=== PATIENT | male | born 2000 | race Caucasian/White ===

== ENCOUNTER 2019-01-22 18:16 | Inpatient (IN) | payer MEDICAID, OTHER ==
[2019-01-22 18:16] VITALS: BMI 21.2
--- NOTE | 2019-01-22 18:47 | ED PDOC ---
HPI: Psych/Substance Abuse Time Seen by Provider: 01/22/19 18:37 Chief Complaint (Nursing): Psychiatric Evaluation Chief Complaint (Provider): psych eval History Per: Patient (18 y/o male here for evaluation of overdose and SI. Patient took unknown amount of mother's medication today. Patient states he "doesn't want to be here." Denies any prior suicidal attempts. Denies any current alcohol but states he has occasional smoked thc in past. ) Past Medical History Reviewed: Historical Data, Nursing Documentation, Vital Signs Vital Signs: Last Vital Signs Temp 97.9 F 01/22/19 18:18 Pulse 77 01/22/19 18:18 Resp 18 01/22/19 18:18 BP 146/106 H 01/22/19 18:18 Pulse Ox 99 01/22/19 18:18 - Surgical History Surgical History: Tonsillectomy - Family History Family History: States: Unknown Family Hx - Immunization History Hx Tetanus Toxoid Vaccination: Yes Hx Influenza Vaccination: No Hx Pneumococcal Vaccination: No - Home Medications Home Medications: Ambulatory Orders Medication Instructions Recorded Clobetasol 0.05% [Temovate 0.05% 1 applic EXT BID #30 g 07/08/18 OINTMENT] - Allergies Allergies/Adverse Reactions: Allergies Allergy/AdvReac Type Severity Reaction Status Date / Time No Known Allergies Allergy Verified 01/22/19 18:17 Review of Systems ROS Statement: Except As Marked, All Systems Reviewed And Found Negative Physical Exam - Reviewed Nursing Documentation Reviewed: Yes Vital Signs Reviewed: Yes - Physical Exam Appears: Positive for: Well, Non-toxic, No Acute Distress Head Exam: Positive for: ATRAUMATIC, NORMAL INSPECTION, NORMOCEPHALIC Skin: Positive for: Normal Color, Warm, DRY Eye Exam: Positive for: EOMI, Normal appearance, PERRL ENT: Positive for: Normal ENT Inspection Neck: Positive for: Normal, Painless ROM Cardiovascular/Chest: Positive for: Regular Rate, Rhythm Respiratory: Positive for: CNT, Normal Breath Sounds Gastrointestinal/Abdominal: Positive for: Normal Exam, Soft Back: Positive for: Normal Inspection Extremity: Positive for: Normal ROM Neurological/Psych: Positive for: Awake, Alert, Normal Tone - ECG ECG Rhythm: Positive for: Sinus Rhythm (nsr 67 bpm; no ectopy no acute changes QT/QTc 364/384) O2 Sat by Pulse Oximetry: 99 - Progress ED Course And Treament: d/w poison control 19:05pm. Recommends NS fluid hydration and observation of BP. Recommends 6 hour observation CALLED TO BEDSIDE PATIENT BECAME AGITATED 19:20 PATIENT PLACED IN RESTRAINTS. ATIVAN 2 MG IM X 1 DOSE. PATIENT PERSISTENTLY AGITATED. HALDOL 5MG IM X 1 DOSE Disposition - Clinical Impression Clinical Impression: Overdose - Patient ED Disposition Is Patient to be Admitted: Transfer of Care - Disposition Disposition: Transfer of Care Disposition Time: 20:00 Condition: FAIR Patient Signed Over To: Abbe Cisneros Handoff Comments: PENDING RE-EVALUATION IN 6 HOURS. REVIEW OF LABWORK/CRISIS EVAL WHEN MEDICALLY CLEARED.
[2019-01-22] MEDS ORDERED: Sodium Chloride 0.9% 1,000 ML IV STA (18:49)
--- NOTE | 2019-01-22 20:00 | ED PDOC ---
- Laboratory Results Result Diagrams: 01/22/19 20:20 01/22/19 20:20 - ECG O2 Sat by Pulse Oximetry: 99 <Abbe Cisneros - Last Filed: 01/23/19 05:33> - Laboratory Results Result Diagrams: 01/22/19 20:20 01/22/19 20:20 Lab Results: PT 12.1 Seconds (9.8-13.1) 01/22/19 20:20 INR 1.1 01/22/19 20:20 APTT 31.3 Seconds (25.6-37.1) 01/22/19 20:20 Total Bilirubin 1.0 mg/dl (0.2-1.3) 01/22/19 20:20 AST 31 U/L (17-59) 01/22/19 20:20 ALT 15 U/L (21-72) L 01/22/19 20:20 Alkaline Phosphatase 57 U/L (38-126) 01/22/19 20:20 Total Protein 7.9 G/DL (6.3-8.2) 01/22/19 20:20 Albumin 4.9 g/dL (3.5-5.0) 01/22/19 20:20 Globulin 3.0 gm/dL (2.2-3.9) 01/22/19 20:20 Albumin/Globulin Ratio 1.7 (1.0-2.1) 01/22/19 20:20 <Jeison Reed - Last Filed: 01/23/19 11:47> Medical Decision Making Medical Decision Makin - Care for this patient assumed from Amee Pablo [facility]; the patient is medically stable, in physical restraints and still showing signs of aggitation and aggresion toward staff making it an unsafe environment. The patient has been placed on a monitor to observe rythmn, O2 and BP remotely. The plan for this patient continues to be * Assess/adjust medications daily and/or as needed * Discuss risks, benefits , side effects and alternatives of medication * See patient on an individual basis 7x/week to assess level of aggressive/threatening behaviors * * Crisis Intervention when appropriate 2039 - The patient's aggitation and aggression has subsided with medical assistance and he no longer poses a threat to his or to the staff's saftey. He is resting comfortably and physical retraints have been removed. The patient remains on 1:1 observation and family is in the room with him. * 2230 - on re-evaluation, the patient remains medically stable 0020 - on re-evaluation, the patient remains medically stable 0251 - on re-evaluation, the patient remains medically stable 0500 - on re-evaluation, the patient remains medically stable 0555 - The patient remains stable; care for this patient will be maintained by Dr Eber Reed <Abbe Cisneros - Last Filed: 01/23/19 05:33> Medical Decision Makin:00 Evaluated patient at bedside. Patient has stable vitals and is comfortably sleeping in his bed. Awaiting crisis evaluation. 07:00 Patient signed out to Dr. Grimes. Pending crisis evaluation. Scribe Attestation: Documented by Eric Diaz acting as a scribe for Jeison Reed MD. Provider Scribe Attestation: All medical record entries made by the Scribe were at my direction and personally dictated by me. I have reviewed the chart and agree that the record accurately reflects my personal performance of the history, physical exam, medical decision making, and the department course for this patient. I have also personally directed, reviewed, and agree with the discharge instructions and disposition. <Jeison Reed - Last Filed: 01/23/19 11:47> Disposition <Abbe Cisneros - Last Filed: 01/23/19 05:33> - POA Present On Arrival: None - Disposition Disposition: Transfer of Care Disposition Time: 07:00 Patient Signed Over To: Yo Grimes <Jeison Reed - Last Filed: 01/23/19 11:47> - Clinical Impression Clinical Impression: Overdose, Suicidal ideations - Disposition Condition: STABLE
[2019-01-22 20:40] LABS: BASO % 0.2 % (0.0-2.0); EOS # 0.1 K/uL (0.0-0.7); EOS % 0.7 % (0.0-4.0); HEMOGLOBIN 16.3 g/dL (12.0-18.0); LYMPH # 2.1 K/uL (1.0-4.3); LYMPH % 21.2 % (20.0-40.0); MEAN CELL VOLUME 90.7 fl (80.0-94.0); MEAN CORPUSCULAR HEMOGLOBIN 31.6 pg (27.0-31.0); MEAN CORPUSCULAR HGB CONC 34.9 g/dL (33.0-37.0); MEAN PLATELET VOLUME 9.9 fl (7.2-11.7); MONO # 0.6 K/uL (0.0-0.8); MONO % 6.4 % (0.0-10.0); NEUT # 7.1 K/uL (1.8-7.0); NEUT % 71.5 % (50.0-75.0); NRBC % 0.2 % (0.0-0.0); RBC 5.15 Mil/uL (4.40-5.90); RED CELL DISTRIBUTION WIDTH 12.9 % (11.5-14.5); WHITE BLOOD COUNT 9.9 K/uL (4.8-10.8)
[2019-01-22 20:44] LABS: INR 1.1; PROTHROMBIN TIME 12.1 Seconds (9.8-13.1)
[2019-01-22 20:46] LABS: PARTIAL THROMBOPLASTIN TIME 31.3 Seconds (25.6-37.1)
[2019-01-22 20:47] LABS: ALB/GLOB RATIO 1.7 (1.0-2.1); ALBUMIN 4.9 g/dL (3.5-5.0); ALT/SGPT 15 U/L (21-72); AST/SGOT 31 U/L (17-59); BLOOD UREA NITROGEN 14 mg/dl (9-20); CALCIUM 10.1 mg/dL (8.4-10.2); GFR NON-AFRICAN AMERICAN > 60
[2019-01-22 20:50] LABS: ACETAMINOPHEN < 10.0 ug/ml (10.0-30.0); SALICYLATE < 1.0 mg/dl
--- NOTE | 2019-01-23 07:15 | ED PDOC ---
- Laboratory Results Result Diagrams: 01/22/19 20:20 01/22/19 20:20 Lab Results: PT 12.1 Seconds (9.8-13.1) 01/22/19 20:20 INR 1.1 01/22/19 20:20 APTT 31.3 Seconds (25.6-37.1) 01/22/19 20:20 Total Bilirubin 1.0 mg/dl (0.2-1.3) 01/22/19 20:20 AST 31 U/L (17-59) 01/22/19 20:20 ALT 15 U/L (21-72) L 01/22/19 20:20 Alkaline Phosphatase 57 U/L (38-126) 01/22/19 20:20 Total Protein 7.9 G/DL (6.3-8.2) 01/22/19 20:20 Albumin 4.9 g/dL (3.5-5.0) 01/22/19 20:20 Globulin 3.0 gm/dL (2.2-3.9) 01/22/19 20:20 Albumin/Globulin Ratio 1.7 (1.0-2.1) 01/22/19 20:20 - ECG O2 Sat by Pulse Oximetry: 97 (RA) Pulse Ox Interpretation: Normal - Progress ED Course And Treament: 851: Crisis accepted and will admit. Stable. AAOx3. Medical Decision Making Medical Decision Making: Time: 0700 -- Patient endorsed to me by Dr. Reed, pending crisis evaluation. Patient medically cleared for crisis evaluation by Dr. Reed on previous shift. Scribe Attestation: Documented by Carrington Quan, acting as a scribe Cassie Grimes MD. Provider Scribe Attestation: All medical record entries made by the Scribe were at my direction and personally dictated by me. I have reviewed the chart and agree that the record accurately reflects my personal performance of the history, physical exam, medical decision making, and the department course for this patient. I have also personally directed, reviewed, and agree with the discharge instructions and disposition. Disposition - Clinical Impression Clinical Impression: Overdose - POA Present On Arrival: None - Disposition Disposition: Admitted as In-Patient Disposition Time: 08:00 Condition: FAIR
[2019-01-23 08:52] VITALS: O2SAT 97
[2019-01-23 09:10] LABS: BARBITURATES, UR NEGATIVE (NEGATIVE); BENZODIAZEPINES, UR NEGATIVE (NEGATIVE); OPIATES, UR NEGATIVE (NEGATIVE); PHENCYCLIDINE, UR NEGATIVE (NEGATIVE)
[2019-01-23 09:11] LABS: URINE BILIRUBIN NEGATIVE (NEGATIVE); URINE BLOOD NEGATIVE (NEGATIVE); URINE CLARITY SLIGHTY-CLOUDY (Clear); URINE COLOR YELLOW (YELLOW); URINE GLUCOSE (UA) NEG (NEGATIVE); URINE HYALINE CAST 0-2 /hpf (0-2); URINE LEUKOCYTE ESTERASE NEG Leu/uL (Negative); URINE PROTEIN 30 mg/dL (NEGATIVE); URINE UROBILINOGEN 0.2-1.0 mg/dL (0.2-1.0)
--- NOTE | 2019-01-23 09:18 | RAD ---
Date of service: 01/22/2019 HISTORY: routine COMPARISON: No prior. FINDINGS: LUNGS: No active pulmonary disease. PLEURA: No significant pleural effusion identified, no pneumothorax apparent. CARDIOVASCULAR: No aortic atherosclerotic calcification present. Normal cardiac size. No pulmonary vascular congestion. OSSEOUS STRUCTURES: No significant abnormalities. VISUALIZED UPPER ABDOMEN: Normal. OTHER FINDINGS: None. IMPRESSION: No active disease.
[2019-01-23] MEDS ORDERED: Alum-Mag Hydrox-Simethicone Susp (30 mL) PO PRN (13:05)
[2019-01-23] MEDS ORDERED: DiphenhydrAMINE 50 mg/ml Inj IM PRN (13:05)
[2019-01-23] MEDS ORDERED: Magnesium Hydroxide Susp 30 ml UD PO PRN (13:05)
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
--- NOTE | 2019-01-23 19:56 | PCM.BM ---
<ChetanJuliannaMarita Irving Nadira - Last Filed: 01/23/19 19:56> Treatment assets and liabiliti Patient Assests: self-reliant, ADL independent, physically healthy, negotiates basic needs, cognitively intact Patient Liabilities: relationship conflicts, substance abuse - Milieu Protocol Maintain good personal hygiene: daily Encourage regular showers, daily Remind patient to perform daily oral care, daily Assist patient to perform ADL's Conduct patient checks and document Observation sheet: Q15 minutes Maintain personal safety: every shift Educate patient to report safety concerns to staff, every shift Monitor environment for contraband/sharps Medication safety: Monitor for expected outcome, potential side effects: every shift, Assess barriers to learning: every shift, Assess readiness for medication education: every shift Milieu Narrative: start lexapro 10 mg qhs motivational group and supportive therapy internal medicine consult Discharge/Continuing Care - Treatment Team Participation Patient/Family/SO Statement: start lexapro 10 mg qhs motivational group and supportive therapy internal medicine consult <Monica Blanco - Last Filed: 01/25/19 13:52> Treatment Plan Problems - Problems identified on initial assessmt Hopelessness/Helplessness Date Initiated: 01/25/19 Time Initiated: 13:40 Assessment reference: NA Status: Active Ineffective coping Date Initiated: 01/25/19 Time Initiated: 13:41 Assessment reference: NA Status: Active - Milieu Protocol Maintain good personal hygiene: daily Encourage regular showers, daily Remind patient to perform daily oral care, other Assist patient to perform ADL's (prn) Conduct patient checks and document Observation sheet: Q15 minutes Maintain personal safety: every shift Educate patient to report safety concerns to staff, every shift Monitor environment for contraband/sharps Medication safety: Monitor for expected outcome, potential side effects: every shift, Assess barriers to learning: every shift, Assess readiness for medication education: every shift <Lilian Cortez - Last Filed: 01/26/19 15:30> - Diagnosis (1) Depression Status: Acute Interventions: psychotherapy, pharmacotherapy 01/26/19 15:30 <Yojana William - Last Filed: 01/26/19 15:44> Treatment assets and liabiliti Patient Assests: adapts well, cooperative, educated ( Pt. reports plan to attend college and is currently in the process of enrolling.), motivated, self-reliant, ADL independent, physically healthy, good support system (Pt. identifies mother as primary support, stating that they are very close. Pt. reports having a loving and supportive relationship with aunts, cousins, and girlfriend.), negotiates basic needs, cognitively intact Patient Liabilities: relationship conflicts (Pt. reports distant relationship with older brother. Pt. reports discord with father secondary to fathers absence. ), substance abuse (Pt. reports occasional marijuana use but denies ETOH/other illicit substance abuse. Toxicology positive for cannabis. ), legal issue (Pt. reports recently having license suspended due to unpaid parking tickets (paying fees).) Family Contact Family involvement: Family/SO is involved Family contact: Patient agrees to contact, Family has been contacted by patient, Telephone contact initiated by staff Family contact comment: Finance Effectiveness Manager met with pt. to discuss precursors to hospitalization, collect further collateral/necessary consents, and complete initial assessment. Pt. AOX4 with brighter affect than upon admission. Pt. reports improvement in sxs of depression since admission. Pt. reported improvement in sleep disturbances after med increase on 01/24. Pt. expressing remorse towards suicide attempt leading to admission. Pt. expressed motivation for tx upon discharge. Pt. visible on 3NP and observed socializing appropriately with peers. Pt. denies SI/HI and is able to contract for safety on 3NP. Assessment completed and will be submitted on 01/25. . Finance Effectiveness Manager placed call to pts cousin (Jacqui [phone]) to discuss pts progress on 3NP and aftercare. Finance Effectiveness Manager left brief message with call back number on unidentified voicemail. Finance Effectiveness Manager awaiting response. - Goals for Treatment Patient goals for treatment: Patient to continue stabilization on 3NP through medication management and group/supportive therapy to address sxs of depression (energy, motivation, sleep) and eliminate SI. Patient to be encouraged to attend groups regularly to promote self-awareness, sobriety, and improve insight, compliance, coping skills and self-esteem. Patient to be provided with referral for appropriate level of aftercare to reduce risk of future hospitalizations and ensure safety in the community. Pt. identified improvement in sleep and wanting to be connected to outpatient mental health services to "finally get help" as primary tx goal. Discharge/Continuing Care - Education Needs Education Needs: Family Medication, Family Diagnosis/Disease Process, Family Community resources, Family Aftercare Safety Plan, Patient Medication, Patient Diagnosis/Disease Process, Patient Coping Skills, Patient Community resources, Patient Aftercare Safety Plan - Discharge Discharge Criteria: Tolerates medication w/o severe side effects, Free of Suicidal thoughts, Normal sleep pattern, Ability to care for self, Reduction of target symptoms Discharge to:: Home, With Family - Treatment Team Participation Patient/Family/SO Statement: 01/26/19 15:40 Patient attended tx team this morning to discuss improvement since admission and tx goals. Affect brighter than admission. Pt. reported improvement in sxs of depression since admission as exhibited by improvement in mood, energy, motivation, and sleep. Pt. goal-oriented and discharge focused, reporting plans to return to work and enroll in college courses. Importance of adherence with aftercare emphasized. Pt. expressed motivation for tx.. Pt. requested p sychoeducation regarding medication management. Information provided. 01/26/19 15:44 Discussed with Family/SO: Yes Was Patient/Family/SO present at Treatment Team Meeting: Yes
--- NOTE | 2019-01-23 22:32 | CARD ---
APPROVED REPORT Date of service: 01/22/2019 EKG Measurement Heart [id number] <Conclusion> Normal sinus rhythm Minimal voltage criteria for LVH, may be normal variant Borderline ECG
--- NOTE | 2019-01-24 17:38 | PCM.PYCHPN ---
Psychiatric Progress Note - Psychiatric Progress Note Patient seen today, length of contact: chart review case discussed with team Patient Chief Complaint: was feeling overwhelmed took unknown number of advil in an impulse, became nervous made self throw up, reports new job, has girlfriend. wanting to attend college missed enrollment date, admits remorse, realized that mother and brother were affected as ell as was girlfriend. expresses thoughts related to be a "proscraternator", grades in high school"b's and c's" would procrastinate" did not attend smaller classes denies having been told might be adhd add". reports only saw counselor in last year of high school when parents . does express willingness to continue treatment upon admission including psychotherapy Problems Identified/Issues Discussed: alteration in mood alteration in coping Medical Problems: per chart elevated glucose upon admission ?fasting Diagnostic Results: per psychiatry per medicine per nursing per social work per recreational therapy per s DSM 5 Symptoms Update: alteration in mood alteration in sleep reports decreased sleep last night Medication Change: Yes (trazodone 50mg po hs prn insomina) Medical Record Reviewed: Yes (repeat cmp elevated glucose ?fasting) Consults ordered or reviewed: pt seen by hospitalist Mental Status Examination - Cognitive Function Orientation: Person, Place, Situation, Time Attention: WNL Concentration: WNL Association: WNL Fund of Knowledge: WN Decription of patient's judgement and insights: impaired - Mood Mood: Depressed - Affect Affect: Constricted, Depressed - Formal Thought Process Formal Thought Process: No Impairment - Homicidal Ideation Homicidal Ideation: No Goal/Treatment Plan - Goal/Treatment Plan Progress Toward Problem(s) and Goals/Treatment Plan: inpt milieu trazodone 50mg po hs prn insomnia review possible constipation, priaprism, possible s/s serotonin syndrome-b/p hr 1/2 hour after trazodone discharge planning in progress-pt requests to follow up in [place] upon discharge Estimated Date of D/C: 01/28/19 - Smoking Cessation Smoking Cessation Initiated: No Reason for not providing: defers
--- NOTE | 2019-01-25 12:51 | PCM.PYCHPN ---
Psychiatric Progress Note - Psychiatric Progress Note Patient seen today, length of contact: chart review case discussed with team Patient Chief Complaint: reports feeling calmer slept better denies desire to harm self staff report pt rx adherent seen about unit/milieu. reports remorse for attempt at taking advil. verbalizes desire to follow up with opd treatment/counseling. denies side effects with medications. staff report vital signs with in normal limits. Problems Identified/Issues Discussed: alteration in mood alteration in coping Medical Problems: per chart elevated glucose upon admission ?fasting Diagnostic Results: per psychiatry per medicine per nursing per social work per recreational therapy DSM 5 Symptoms Update: some improvement mood sleep Medication Change: No Medical Record Reviewed: No Consults ordered or reviewed: pt seen by hospitalist Mental Status Examination - Cognitive Function Orientation: Person, Place, Situation, Time Attention: WNL Concentration: WNL Association: WNL Fund of Knowledge: WNL Decription of patient's judgement and insights: impaired - Mood Mood: Depressed Additional comments: somewhat less - Affect Affect: Constricted, Depressed - Formal Thought Process Formal Thought Process: No Impairment - Homicidal Ideation Homicidal Ideation: No Goal/Treatment Plan - Goal/Treatment Plan Progress Toward Problem(s) and Goals/Treatment Plan: inpt milieu trazodone 50mg po hs prn insomnia adjust other medications per clinical status review possible constipation, priaprism, possible s/s serotonin syndrome-b/p hr 1/2 hour after trazodone discharge planning in progress-pt requests to follow up in [place] upon disc harge Estimated Date of D/C: 01/28/19 - Smoking Cessation Smoking Cessation Initiated: No Reason for not providing: pt defers
[2019-01-26 08:42] LABS: ALB/GLOB RATIO 1.5 (1.0-2.1); ALBUMIN 4.8 g/dL (3.5-5.0); ALT/SGPT 24 U/L (21-72); AST/SGOT 47 U/L (17-59); BLOOD UREA NITROGEN 12 mg/dl (9-20); CALCIUM 10.2 mg/dL (8.4-10.2); GFR NON-AFRICAN AMERICAN > 60
--- NOTE | 2019-01-26 15:31 | PCM.PYCHPN ---
Psychiatric Progress Note - Psychiatric Progress Note Patient seen today, length of contact: chart review case discussed with team Patient Chief Complaint: I feel less depressed and more hopeful about the future Medical Problems: no hx of previous psychiatric treatment Medication Change: Yes Medical Record Reviewed: Yes Mental Status Examination - Cognitive Function Orientation: Person, Place, Situation, Time Attention: WNL Concentration: WNL Association: WNL Fund of Knowledge: WNL - Mood Mood: Depressed - Affect Affect: Constricted, Depressed - Formal Thought Process Formal Thought Process: No Impairment - Homicidal Ideation Homicidal Ideation: No Goal/Treatment Plan - Goal/Treatment Plan Progress Toward Problem(s) and Goals/Treatment Plan: start lexapro 10 mg qhs motivational group and supportive therapy internal medicine consult Estimated Date of D/C: 01/28/19
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
--- NOTE | 2019-01-26 16:57 | CP.PCM.CON ---
History of Present Illness - History of Present Illness History of Present Illness: HPI: 18 y/o man w/ no pmh is admitted to psychiatry for major depression. Patient also reports marijuana use. Patient denies headaches, chest pain, abdominal pain, nausea, vomiting, diarrhea, dysuria, or fever. Review of Systems - Review of Systems All systems: reviewed and no additional remarkable complaints except - Constitutional Constitutional: absent: Fever, Headache - EENT Eyes: absent: Change in Vision - Cardiovascular Cardiovascular: absent: Chest Pain - Respiratory Respiratory: absent: Dyspnea - Gastrointestinal Gastrointestinal: absent: Abdominal Pain, Diarrhea, Nausea, Vomiting - Genitourinary Genitourinary: absent: Dysuria - Integumentary Integumentary: absent: Rash - Psychiatric Psychiatric: As Per HPI Past Patient History - Past Social History Smoking Status: Never Smoked - CARDIAC Hx Cardiac Disorders: No Hx Hypertension: No - PULMONARY Hx Tuberculosis: No Other/Comment: tonsils - NEUROLOGICAL HX Cerebrovascular Accident: No Hx Seizures: No - HEMATOLOGICAL/ONCOLOGICAL Hx Cancer: No Hx Human Immunodeficiency Virus (HIV): No - GENITOURINARY/GYNECOLOGICAL Hx Sexually Transmitted Disorders: No - PSYCHIATRIC Hx Substance Use: Yes (mj) - SURGICAL HISTORY Hx Tonsillectomy: Yes - ANESTHESIA Hx Anesthesia: Yes Hx Anesthesia Reactions: No Meds Home Medications: Home Medication List Medication Instructions Recorded Confirmed Type Escitalopram [Lexapro] 10 mg PO HS 30 Days #30 tab 01/26/19 Rx Gabapentin [Neurontin] 100 mg PO TID 30 Days #90 cap 01/26/19 Rx traZODone [Desyrel] 100 mg PO HS 30 Days #30 tab 01/26/19 Rx Allergies/Adverse Reactions: Allergies Allergy/AdvReac Type Severity Reaction Status Date / Time No Known Allergies Allergy Verified 01/22/19 18:17 - Medications Medications: Current Medications Acetaminophen (Tylenol 325mg Tab) 650 mg PO Q4 PRN PRN Reason: Pain, moderate (4-7) Al Hydrox/Mg Hydrox/Simethicone (Maalox Plus 30 Ml) 30 ml PO Q4 PRN PRN Reason: Dyspepsia Diphenhydramine HCl (Benadryl) 50 mg IM Q6 PRN PRN Reason: Extrapyramidal S/S Unable PO Diphenhydramine HCl (Benadryl) 50 mg PO Q6 PRN PRN Reason: Extrapyramidal Symptoms Diphenhydramine HCl (Benadryl) 50 mg PO HS PRN PRN Reason: Sleep Last Admin: 01/23/19 21:16 Dose: 50 mg Escitalopram Oxalate (Lexapro) 10 mg PO HS [facility] Last Admin: 01/25/19 21:03 Dose: 10 mg Gabapentin (Neurontin) 100 mg PO TID [facility] Last Admin: 01/26/19 12:56 Dose: 100 mg Haloperidol (Haldol) 5 mg PO Q4 PRN PRN Reason: Agitation Haloperidol Lactate (Haldol) 5 mg IM Q4 PRN PRN Reason: Agitation, Unable to Take PO Lorazepam (Ativan) 2 mg IM Q4 PRN PRN Reason: Anxiety/Agitation,Unable PO Lorazepam (Ativan) 1 mg PO Q8 PRN PRN Reason: Anxiety/Agitation Magnesium Hydroxide (Milk Of Magnesia) 30 ml PO HS PRN PRN Reason: Constipation Trazodone HCl (Desyrel) 100 mg PO HS [facility] Physical Exam - Constitutional Appears: Non-toxic, No Acute Distress - Head Exam Head Exam: ATRAUMATIC, NORMAL INSPECTION, NORMOCEPHALIC - Eye Exam Eye Exam: EOMI, Normal appearance, PERRL - ENT Exam ENT Exam: Mucous Membranes Moist - Respiratory Exam Respiratory Exam: Clear to Auscultation Bilateral, NORMAL BREATHING PATTERN. absent: Decreased Breath Sounds, Rales, Rhonchi, Wheezes, Respiratory Distress - Cardiovascular Exam Cardiovascular Exam: REGULAR RHYTHM, RRR, +S1, +S2. absent: Tachycardia - GI/Abdominal Exam GI & Abdominal Exam: Normal Bowel Sounds, Soft. absent: Distended, Tenderness - Extremities Exam Extremities exam: Positive for: normal inspection. Negative for: calf tenderness, pedal edema - Neurological Exam Neurological exam: Alert, CN II-XII Intact, Normal Gait, Oriented x3 - Skin Skin Exam: Dry, Intact, Normal Color, Warm Results - Vital Signs Recent Vital Signs: Last Vital Signs Temp 97.1 F L 01/26/19 09:00 Pulse 81 01/26/19 09:00 Resp 16 01/26/19 09:00 BP 129/87 01/26/19 09:00 Pulse Ox 97 01/23/19 08:52 - Labs Result Diagrams: 01/22/19 20:20 01/26/19 07:30 Labs: Laboratory Results - last 24 hr 01/26/19 07:30 Sodium 140 Potassium 5.0 Chloride 99 Carbon Dioxide 31 H Anion Gap 15 BUN 12 Creatinine 1.2 Est GFR ( Amer) > 60 Est GFR (Non-Af Amer) > 60 Random Glucose 96 Calcium 10.2 Total Bilirubin 1.1 AST 47 ALT 24 Alkaline Phosphatase 54 Total Protein 8.0 Albumin 4.8 Globulin 3.3 Albumin/Globulin Ratio 1.5 Assessment & Plan - Assessment and Plan (Free Text) Assessment: 18 y/o man w/ no pmh is admitted to psychiatry for major depression Plan: Major depression - management as per psychiatry team - monitor for acute changes Marijuana use - no signs of acute intoxication - monitor for acute changes Prophylactic measures - ambulatory, low risk for DVT
[2019-01-26 18:22] VITALS: BP 112/70; PULSE 59; RESP 18; TEMP 98.1
== END 2019-01-26 18:00 | disposition home or self-care (01) | DRG 426 ==
LOC: H.ER 18:16 → H.ERHOLD 01-23 08:48 → H.PSYCH 01-23 12:39
PROVIDERS: ADMIT Psychiatry & Neurology Psychiatry; ATTEND Psychiatry & Neurology Psychiatry
PROC: GZHZZZZ Group Psychotherapy (ICD-10-PCS; principal; 2019-01-23)
PROC: HZ57ZZZ Individual Psychotherapy for Substance Abuse Treatment, Motivational Enhancement (ICD-10-PCS; 2019-01-23)
PROC: HZ56ZZZ Individual Psychotherapy for Substance Abuse Treatment, Psychoeducation (ICD-10-PCS; 2019-01-23)
PROC: GZ56ZZZ Individual Psychotherapy, Supportive (ICD-10-PCS; 2019-01-23)
DX: F32.9 Major depressive disorder, single episode, unspecified (principal); F43.10 Post-traumatic stress disorder, unspecified; F12.10 Cannabis abuse, uncomplicated; Z78.1 Physical restraint status; Z62.810 Personal history of physical and sexual abuse in childhood; R45.851 Suicidal ideations; G47.00 Insomnia, unspecified; R73.9 Hyperglycemia, unspecified